=== PATIENT | female | born 1935 | race Caucasian/White ===

== ENCOUNTER 2018-04-17 09:50 | Day surgery (SDC) | payer MEDICARE, OTHER ==
--- NOTE | 2018-04-17 08:18 | HP ---
DATE OF SURGERY: 04/17/2018 HISTORY OF PRESENT ILLNESS: The patient is an 82 year-old who for a while has had a draining cyst on her back. She is in need of excision due to persistent infection and intermittent draining cyst. PAST MEDICAL HISTORY: Hypertension. PAST SURGICAL HISTORY: Cholecystectomy. Carpal tunnel release bilaterally. Cataract removal of both eyes. MEDICATIONS: Lisinopril. ALLERGIES: TRAMADOL. FAMILY HISTORY: Hypertension. SOCIAL HISTORY: Denied smoking. REVIEW OF SYSTEMS: Twelve systems reviewed. No chest pain or palpitations other systems negative or noncontributory as above and per preadmission questionnaire. PHYSICAL EXAMINATION: GENERAL: No acute distress. HEENT: Sclerae nonicteric. NECK: No JVD. CHEST: Equal excursion, nonlabored breathing. CVS: Regular rate and rhythm. ABDOMEN: Soft. No peritoneal signs. EXTREMITIES: No significant edema. NEURO: Alert, moving extremities symmetrically. No gross motor deficits noted. BACK: Enlarged cyst on her back with some occasional drainage in need of excision. IMPRESSION: Enlarging symptomatic back cyst. I feel the patient will benefit from excisional biopsy. Risks and benefits explained in detail including but not limited to bleeding or infection, risk of wound dehiscence possibly requiring packing or possibility if there is enough infection may need packing or packing strip at the time of surgery. General risk of aches, pains, deep venous thrombosis, pulmonary embolism or pneumonia. Risk of anesthesia itself. She also understands what we excise likely will not recur but she could get similar cyst adjacent to or elsewhere on her back or body. She understands and agrees to the planned procedure, will proceed with outpatient excisional biopsy of enlarging back symptomatic back cyst.
[~2018-04-17 09:50] MED LIST: Lactated Ringers 1,000 ML IV ONE; Sensorcaine 0.25% 10 ML ONE
[2018-04-17] MEDS ORDERED: TORAdol 30 mg Injection IV ONE (09:51)
[2018-04-17] MEDS ORDERED: DIPRIVAN 200 MG/20 ML IV ONE (09:51)
[2018-04-17] MEDS ORDERED: Zofran 4 MG/2 ML VIAL IV ONE (09:51)
[2018-04-17] MEDS ORDERED: SUBLIMAZE 100 MCG/2 ML IV ONE (09:51)
[2018-04-17] MEDS ORDERED: Quelicin Fliptop 200 MG/10 ML IV ONE (09:51)
[2018-04-17] MEDS ORDERED: Ephedrine Sulfate 50 MG/ML IV ONE (09:51)
[2018-04-17] MEDS ORDERED: Decadron 4 MG INJ IV ONE (09:51)
[2018-04-17] MEDS ORDERED: Lactated Ringers 1,000 ML IV ONE (10:06)
[2018-04-17] MEDS ORDERED: Lactated Ringers 1,000 ML IV SCH (10:30)
[2018-04-17] MEDS ORDERED: KEFZOL 1 GM ONE (12:06)
[2018-04-17 14:12] VITALS: O2SAT 96
[2018-04-17 14:47] VITALS: BP 140/84; PULSE 83
--- NOTE | 2018-04-17 15:40 | OP ---
SURGERY DATE/TIME: 04/17/2018 1215 PREOPERATIVE DIAGNOSIS: Enlarging back cyst. POSTOPERATIVE DIAGNOSIS: Enlarging back cyst. PROCEDURE: Excisional biopsy ruptured back cyst (Approximately 3.5 cm). SURGEON: Dr. Laurent Andrew. ANESTHESIA: General. ESTIMATED BLOOD LOSS: Minimal. INDICATIONS: As noted above. Risks and benefits explained in detail and not limited to and consent obtained. DESCRIPTION OF PROCEDURE AND FINDINGS: The patient is taken to the operating room. General anesthesia introduced. Back prepped and draped in usual sterile fashion. After official time out and no disagreement with planned procedure, in longitudinal fashion including the tip that was visible, a small spindle-shaped segment of skin dissection carried down circumferentially around the large cyst dissecting off the underlying fascia, this took some time as it was somewhat inflamed but slowly and carefully dissected free and passed off. There was an area of rupture in it but there was no evidence of any residual cyst material or cyst wall in the wound. The cyst was passed off. It measured about 3.5 cm in size passed off for pathology. The wound was irrigated out. With pinpoint cautery good hemostasis noted. Skin closed in layers with interrupted 3-0 Vicryl closing the deep and superficial subcu down to the level of fascia. Skin closed with 4-0 Vicryl with interrupted 3-0 Prolene used to reinforce the area given location on the back. Steri-Strips and sterile dressing applied. The patient tolerated the procedure well. Findings discussed with the family out in the waiting area.
== END 2018-04-17 14:35 | disposition home or self-care (01) ==
LOC: SDC 09:50
PROVIDERS: ATTEND Surgery
DX: L72.0 Epidermal cyst (principal); R20.8 Other disturbances of skin sensation; I10 Essential (primary) hypertension; Z79.899 Other long term (current) drug therapy
CPT/HCPCS: 88304; 94250; 99100; J0330; J0690; J1100; J1885; J2405; J2704; J3010